=== PATIENT | female | born 1975 | race Caucasian/White ===

== ENCOUNTER 2023-11-19 16:26 | Emergency (ER) | payer OTHER, BC | END 2023-11-19 17:15 | disposition home or self-care (01) | LOC: VM.ED 16:26 → MERGE 16:26 → VM.ED 17:15 | DX: S81.011A Laceration without foreign body, right knee, initial encounter (principal); Z88.5 Allergy status to narcotic agent; Z91.040 Latex allergy status; W10.8XXA Fall (on) (from) other stairs and steps, initial encounter | CPT/HCPCS: 12002; 99282; 99283 ==